=== PATIENT | male | born 1960 | race Caucasian/White ===

== ENCOUNTER → 2019-05-27 07:53 | Outpatient (BNVA) | payer MEDICAID, SELFPAY | PROVIDERS: Family Provider Family Medicine; PCP Nurse Practitioner Family; Visit Provider Anesthesiology Pain Medicine | DX: M48.02 Spinal stenosis, cervical region (principal); M54.12 Radiculopathy, cervical region; M54.16 Radiculopathy, lumbar region; F17.220 Nicotine dependence, chewing tobacco, uncomplicated; Z79.891 Long term (current) use of opiate analgesic | CPT/HCPCS: 99204; 99214; 99999 ==

== ENCOUNTER 2019-05-27 10:00 | Outpatient (CLI) | payer MEDICAID, SELFPAY ==
--- NOTE | 2019-05-27 10:05 | XR_ITS ---
WS: [id number] LATERAL LUMBAR SPINE: 3 view. Lateral radiographs are performed in upright neutral, flexion and extension to the patient's toleranc e. HISTORY: back pain COMPARISON: None available. Posterior lumbar alignment is normal. Small hypertrophic osteophytes at all levels. Mild disc space n arrowing at L4-5 and L5-S1 with facet arthropathy. Mild anterior wedging of T11 is stable. With flexion and extension no instability. XR/XR lumbar spine f/e only [id number] IMPRESSION: No lumbar spine instability.
== END 2019-05-27 10:01 | disposition home or self-care (01) ==
LOC: RADWPI 10:02
PROVIDERS: Family Provider Family Medicine; PCP Nurse Practitioner Family; Visit Provider Internal Medicine Rheumatology
DX: M54.16 Radiculopathy, lumbar region (principal)
CPT/HCPCS: 72120

== ENCOUNTER → 2019-06-10 13:47 | Outpatient (BNVA) | payer MEDICAID, SELFPAY | PROVIDERS: Family Provider Family Medicine; PCP Nurse Practitioner Family; Visit Provider Anesthesiology Pain Medicine | DX: M54.12 Radiculopathy, cervical region (principal); F17.220 Nicotine dependence, chewing tobacco, uncomplicated; Z79.891 Long term (current) use of opiate analgesic | CPT/HCPCS: 62321; J1100; J2001 ==

== ENCOUNTER → 2019-08-14 09:30 | Outpatient (BNVA) | payer MEDICAID, SELFPAY | PROVIDERS: Family Provider Family Medicine; PCP Nurse Practitioner Family; Visit Provider Anesthesiology Pain Medicine | DX: M48.02 Spinal stenosis, cervical region (principal); M54.12 Radiculopathy, cervical region; M54.16 Radiculopathy, lumbar region; M54.9 Dorsalgia, unspecified; F17.220 Nicotine dependence, chewing tobacco, uncomplicated; Z79.891 Long term (current) use of opiate analgesic | CPT/HCPCS: 99214 ==

== ENCOUNTER → 2019-09-16 08:31 | Outpatient (BNVA) | payer MEDICAID, SELFPAY | PROVIDERS: Family Provider Family Medicine; PCP Nurse Practitioner Family; Visit Provider Anesthesiology Pain Medicine | DX: M54.12 Radiculopathy, cervical region (principal); M48.02 Spinal stenosis, cervical region; M54.9 Dorsalgia, unspecified; M54.16 Radiculopathy, lumbar region; F17.220 Nicotine dependence, chewing tobacco, uncomplicated; Z79.891 Long term (current) use of opiate analgesic | CPT/HCPCS: 99214 ==

== ENCOUNTER → 2019-09-26 13:39 | Outpatient (BNVA) | payer MEDICAID, SELFPAY | PROVIDERS: Family Provider Family Medicine; PCP Nurse Practitioner Family; Visit Provider Anesthesiology Pain Medicine | DX: M54.12 Radiculopathy, cervical region (principal); F17.220 Nicotine dependence, chewing tobacco, uncomplicated; Z79.891 Long term (current) use of opiate analgesic | CPT/HCPCS: 62321; J1100; J2001 ==

== ENCOUNTER → 2019-10-08 10:07 | Outpatient (BNVA) | payer MEDICAID, SELFPAY | PROVIDERS: Family Provider Family Medicine; PCP Nurse Practitioner Family; Visit Provider Anesthesiology Pain Medicine | DX: M48.02 Spinal stenosis, cervical region (principal); M54.12 Radiculopathy, cervical region; M54.16 Radiculopathy, lumbar region; M54.9 Dorsalgia, unspecified; F17.220 Nicotine dependence, chewing tobacco, uncomplicated; Z79.891 Long term (current) use of opiate analgesic | CPT/HCPCS: 99214 ==

== ENCOUNTER → 2019-10-20 12:30 | Outpatient (BNVA) | payer MEDICAID, SELFPAY | PROVIDERS: Family Provider Family Medicine; PCP Nurse Practitioner Family; Visit Provider Anesthesiology Pain Medicine | DX: M54.12 Radiculopathy, cervical region (principal); M54.16 Radiculopathy, lumbar region; M54.9 Dorsalgia, unspecified; F17.220 Nicotine dependence, chewing tobacco, uncomplicated; Z79.891 Long term (current) use of opiate analgesic | CPT/HCPCS: 99213 ==

== ENCOUNTER → 2019-11-03 13:04 | Outpatient (BNVA) | payer MEDICAID, SELFPAY | PROVIDERS: Family Provider Family Medicine; PCP Nurse Practitioner Family; Visit Provider Anesthesiology Pain Medicine | DX: M54.12 Radiculopathy, cervical region (principal); F17.220 Nicotine dependence, chewing tobacco, uncomplicated; Z79.891 Long term (current) use of opiate analgesic | CPT/HCPCS: 62321; J1100 ==

== ENCOUNTER → 2019-12-10 09:02 | Outpatient (BNVA) | payer MEDICAID, SELFPAY | PROVIDERS: Family Provider Family Medicine; PCP Nurse Practitioner Family; Visit Provider Anesthesiology Pain Medicine | DX: M54.16 Radiculopathy, lumbar region (principal); M54.9 Dorsalgia, unspecified; M54.12 Radiculopathy, cervical region; M48.02 Spinal stenosis, cervical region; F17.220 Nicotine dependence, chewing tobacco, uncomplicated; Z79.891 Long term (current) use of opiate analgesic | CPT/HCPCS: 99213 ==

== ENCOUNTER → 2020-01-07 10:54 | Outpatient (BNVA) | payer MEDICAID, SELFPAY | PROVIDERS: Family Provider Family Medicine; PCP Nurse Practitioner Family; Visit Provider Anesthesiology Pain Medicine | DX: M54.12 Radiculopathy, cervical region (principal); M48.02 Spinal stenosis, cervical region; M54.16 Radiculopathy, lumbar region; M54.9 Dorsalgia, unspecified; F17.220 Nicotine dependence, chewing tobacco, uncomplicated; Z79.891 Long term (current) use of opiate analgesic | CPT/HCPCS: 99213; 99214 ==

== ENCOUNTER → 2020-01-12 13:30 | Outpatient (BNVA) | payer MEDICAID, SELFPAY | PROVIDERS: Family Provider Family Medicine; PCP Nurse Practitioner Family; Visit Provider Anesthesiology Pain Medicine | DX: M54.12 Radiculopathy, cervical region (principal); Z79.891 Long term (current) use of opiate analgesic | CPT/HCPCS: 62321; J1100 ==

== ENCOUNTER 2020-01-29 08:02 | Outpatient (CLI) | payer MEDICAID, SELFPAY ==
--- NOTE | 2020-01-29 08:00 | MR_ITS ---
WS: [id number] MRI LUMBAR SPINE NONCONTRAST HISTORY: M48.062 Spinal stenosis, lumbar region with neurogenic claudication. COMPARISON: None available. TECHNIQUE: Sagittal and axial multisequence imaging is submitted. Mild anterior wedging of T11. 20% compression fracture. Normal lumbar alignment posteriorly. Mild disc space narrowing and desiccation at L4-5 and L5-S1. S1 segment is partially lumbarized. There is a rudimentary S1-S2 disc. No acute marrow edema or fracture. Conus terminates normally at L1-2 disc level. L1-L2: Normal. L2-L3: Mild annular disc bulging and facet arthritis. No stenosis. L3-L4: Mild annular disc bulging and facet arthritis. No stenosis. L4-L5: Mild annular disc bulging with a shallow central to RIGHT paracentral disc protrusion and muriel lar fissure. There is very slight contact on the L5 nerve roots in the subarticular recesses. No sign ificant central or foraminal stenosis. L5-S1: Diffuse annular disc bulging. There is a central disc protrusion with annular fissure contacti ng the ventral thecal sac. Mild RIGHT foraminal stenosis due to disc and osteophyte and facet disease . MR/MR lumbar spine wo con* [id number] IMPRESSION: 1. No high-grade central or foraminal stenosis. 2. Mild bilateral subarticular recess stenosis at L4-5 with disc encroachment upon the L5 nerve roots bilaterally. 3. Central disc protrusion at L5-S1 with mild contact on the ventral thecal sa c. 4. Mild RIGHT foraminal stenosis at L5-S1. 5. T11 chronic compression fracture, 20%.
== END 2020-01-29 08:03 | disposition home or self-care (01) ==
LOC: RADSHAW 08:05
PROVIDERS: PCP Nurse Practitioner Family; Visit Provider Orthopaedic Surgery
DX: M48.062 Spinal stenosis, lumbar region with neurogenic claudication (principal); M51.27 Other intervertebral disc displacement, lumbosacral region; M48.07 Spinal stenosis, lumbosacral region; S22.080A Wedge compression fracture of T11-T12 vertebra, initial encounter for closed fracture; X58.XXXA Exposure to other specified factors, initial encounter
CPT/HCPCS: 72148

== ENCOUNTER → 2020-01-30 13:06 | Outpatient (BNVA) | payer MEDICAID, SELFPAY | PROVIDERS: PCP Nurse Practitioner Family; Visit Provider Anesthesiology Pain Medicine | DX: M48.02 Spinal stenosis, cervical region (principal); M54.16 Radiculopathy, lumbar region; M54.9 Dorsalgia, unspecified; M54.12 Radiculopathy, cervical region; F17.220 Nicotine dependence, chewing tobacco, uncomplicated; Z79.891 Long term (current) use of opiate analgesic | CPT/HCPCS: 99214; 99215 ==

== ENCOUNTER → 2020-02-16 13:15 | Outpatient (BNVA) | payer MEDICAID, SELFPAY | PROVIDERS: PCP Nurse Practitioner Family; Visit Provider Anesthesiology Pain Medicine | DX: M54.16 Radiculopathy, lumbar region (principal); M54.9 Dorsalgia, unspecified; F17.220 Nicotine dependence, chewing tobacco, uncomplicated; Z79.891 Long term (current) use of opiate analgesic | CPT/HCPCS: 64483 ==

== ENCOUNTER → 2020-03-15 09:06 | Outpatient (BNVA) | payer MEDICAID, SELFPAY | PROVIDERS: PCP Nurse Practitioner Family; Visit Provider Anesthesiology Pain Medicine | DX: M54.42 Lumbago with sciatica, left side (principal); M54.41 Lumbago with sciatica, right side; M54.16 Radiculopathy, lumbar region; M54.12 Radiculopathy, cervical region; M48.02 Spinal stenosis, cervical region; M54.9 Dorsalgia, unspecified; F17.210 Nicotine dependence, cigarettes, uncomplicated; Z79.891 Long term (current) use of opiate analgesic | CPT/HCPCS: 99213; 99214 ==

== ENCOUNTER 2020-04-20 15:08 | Outpatient (CLI) | payer MEDICAID, SELFPAY ==
--- NOTE | 2020-04-20 15:13 | MR_ITS ---
WS: [id number] MRI CERVICAL SPINE NONCONTRAST TECHNIQUE: Sagittal T1, T2 and STIR imaging. Axial T2, gradient, and fiesta imaging. CLINICAL INFORMATION: CERVICALGIA COMPARISON: MRI 7 FINDINGS: Straightening of the normal cervical lordosis. Disc bulging worse at C6-7. Cord signal is normal. C2-C3: Disc osteophyte complex with endplate ridging. Spinal canal is patent. Mild right foraminal na rrowing. Mild facet arthropathy. C3-C4: Disc osteophyte complex with endplate ridging. Mild facet arthropathy. Mild left greater than right foraminal narrowing. C4-C5: Disc osteophyte complex with a tiny shallow central protrusion. Mild central canal stenosis. M oderate left and mild right bony foraminal narrowing. Mild facet arthropathy. C5-C6: Disc osteophyte complex eccentric to the left. Mild central canal stenosis. Moderate left grea ter than right bony foraminal narrowing. Mild facet arthropathy. C6-C7: Slight retrolisthesis C6 on C7. Disc osteophyte complex with moderate central canal stenosis. Severe left greater than right bony foraminal narrowing. Mild facet arthropathy. C7-T1: Disc osteophytic ridging eccentric to the left. Moderate to severe left foraminal narrowing. S shelton canal is patent. Right foramen is patent. MR/MR cervical spin wo con* [id number] IMPRESSION: 1. Straightening of the normal cervical lordosis. 2. Slight retrolisthesis C6 on C7 with moderate central canal stenosis. Severe bilateral foraminal narrowing left greater than right. 3. Mild central canal stenosis C4-C5 and C5-C6. 4. Moderate left C4-C5 left C5-C6 and left C7-T1 bony foraminal narrowing. 5. Overall no significant changes since 2019
== END 2020-04-20 15:09 | disposition home or self-care (01) ==
LOC: RADWPI 15:11
PROVIDERS: PCP Nurse Practitioner Family; Visit Provider Nurse Practitioner Family
DX: M48.02 Spinal stenosis, cervical region (principal)
CPT/HCPCS: 72141

== ENCOUNTER → 2020-04-23 11:06 | Outpatient (BNVA) | payer MEDICAID, SELFPAY | PROVIDERS: PCP Nurse Practitioner Family; Referring Provider Nurse Practitioner Family; Visit Provider Orthopaedic Surgery | DX: M54.12 Radiculopathy, cervical region (principal); M54.2 Cervicalgia | CPT/HCPCS: 72050 ==

== ENCOUNTER → 2020-04-29 13:42 | Outpatient (BNVA) | payer MEDICAID, SELFPAY | PROVIDERS: PCP Nurse Practitioner Family; Visit Provider Anesthesiology Pain Medicine | DX: M54.16 Radiculopathy, lumbar region (principal); M54.12 Radiculopathy, cervical region; M48.02 Spinal stenosis, cervical region; M54.9 Dorsalgia, unspecified; F17.220 Nicotine dependence, chewing tobacco, uncomplicated; Z79.891 Long term (current) use of opiate analgesic | CPT/HCPCS: 99214 ==

== ENCOUNTER → 2020-06-24 08:53 | Outpatient (BNVA) | payer MEDICAID, SELFPAY | PROVIDERS: PCP Nurse Practitioner Family; Visit Provider Orthopaedic Surgery | DX: Z01.812 Encounter for preprocedural laboratory examination (principal); Z20.822 Contact with and (suspected) exposure to COVID-19 | CPT/HCPCS: 87635 ==

== ENCOUNTER 2020-06-30 05:56 | Day surgery (SDC) | payer MEDICAID, SELFPAY ==
[2020-06-29 19:12] VITALS: BMI 30.2
--- NOTE | 2020-06-30 | SCC_ITS ---
Procedure Done: 1. Anterior diskectomy C5/6 2. Anterior discectomy C6/7 3. Insertion of cage C5/6 4. Insertion of Cage C6/7 5. Instrumentation with anterior plate from C5-C7 6. Use of allograft 9.4 seconds of fluoroscopic guidance, for a cumulative dose of 1.57 mGy, was provided to Dr. Velazquez by the radiology department. C-arm images of the cervical spine were saved for the patient's permanent record. REGID
--- NOTE | 2020-06-30 | XR_ITS ---
WS: [id number] Cervical spine, AP and lateral C-arm fluoroscopy views in the OR, 06/30/2020 Clinical Data: cervical radiculopathy Comparison: Cervical spine, 04/23/2020. Findings: There is anterior cervical disc fusion of C5, C6 and C7 with artificial intervertebral disc s at C5-6-C6 and C6-C7. XR/XR cervical spine 3V* [id number] Impression: Anterior cervical disc fusion C5-C7.
--- NOTE | 2020-06-30 06:46 | ANES.PREANE2 ---
Pre-Anesthetic Assessment Pre-Anesthetic Assessment: Height/Weight: Height 1.7 m Weight 87.543 kg Preop Diagnosis: cervical spondylosis with myelopathy Proposed Procedure: Operation Date: 06/30/20 07:00 Proposed Procedures p Anterior Cervical Discectomy & Fusion /c 5/6 C6/7 M54.12 [id number](Not Applicable) - Ed Velazquez DO Familial anesthetic complications: none Was Beta Esau taken within 24 hours: N/A Was Clonidine taken within 24 hours: N/A Last intake: Intake Last Liquid Date 06/29/20 Last Liquid Time 18:00 Last Solid Date 06/29/20 Last Solid Time 18:00 Social: Social History: Alcohol and No tobacco Exam: Pre-Anes Outpt Exam: alert, oriented x 3, clear to auscultation bilaterally and regular rate & rhythm Airway: Cervical ROM: WNL MP: 4 Dentition: False (uppers) CV/HEM: CV/HEM: HTN Hepatic: Comments: cirrhosis GI: GI: GERD Metabolic: Metabolic: Hyperlipidemia and Morbid obesity Anesthetic Plan: ASA status: 3 Anesthesia: General Risk of > 500 ml blood loss (7ml/kg in children): No PFSH Anesthesia PFSH: Medical History Cervical disc disorder with myelopathy of mid-cervical region Spinal stenosis, cervical region Family History Son Asthma Family/Other Asthma Son Seizure disorder Family/Other Diabetes Family/Other Cancer malignant neoplastic disease Grandfather Heart disease Brother Cancer throat Brother Cardiac arrest Social History Smoking and tobacco status: current every day smoker smokeless tobacco Smokeless tobacco user: chewing tobacco Alcohol intake: current Alcohol intake frequency: few times a week Last alcohol use date: 05/26/19 Other details last alcohol use: pt uses to help him sleep Lives independently: Yes Marital status: Single History of recent travel: No Data Anesthesia Cardiac Studies: No Data to Display
--- NOTE | 2020-06-30 06:50 | PM.HP ---
Providers/Chief Complaint Primary Care Provider: Linnetet BernalP-C Chief Complaint: cervical radiculopahty History of Present Illness Xander Lord is a 59 year old male patient who presents to the clinic for evaluation of his chronic neck pain. Chief Complaint: Neck pain Onset: 20 years Duration: Characteristics: sharp Severity: 3 Location: neck Radiating symptoms: pain and numbness that radiates to both upper extremities. Aggravating factors: Alleviating factors: Neuro deficits: denies numbness, tingling, weakness, incontinence of bowel/bladder, saddle anesthesia. Prior tx: Injections at pain management with Dr. Lindsey and Carolyn Associated symptoms: Reports limited range of motion; Denies fever(s) Review of Systems Narrative: Denies: fever(s) or chills Card: Denies: chest pain or dyspnea on exertion Resp: Denies: dyspnea or productive cough GI: Denies: abdominal pain, nausea or vomiting Musc: Reports: neck pain and limited range of motion Skin/Breast: Denies: changes in skin color or dry skin Neuro: Reports: numbness in extremities; Denies: weakness in extremities Psych: Denies: anxiety Angel/Lymph: Denies: easy bruising or easy bleeding Medications/Allergies Home Medications Medication Instructions Recorded Confirmed Last Taken Type atorvastatin 40 mg tablet 40 mg PO DAILY 05/27/19 06/30/20 06/29/20 History azelastine 137 mcg (0.1 %) nasal 2 spray INTRANASAL BID 05/27/19 06/30/20 06/29/20 History spray aerosol buspirone 10 mg tablet 10 mg PO BID 05/27/19 06/30/20 06/29/20 History carvedilol 6.25 mg tablet 6.25 mg PO BID 05/27/19 06/30/20 06/30/20 04:30 History cetirizine 10 mg tablet 10 mg PO DAILY 05/27/19 06/30/20 06/29/20 History duloxetine 30 mg capsule,delayed 30 mg PO DAILY 05/27/19 06/30/20 06/29/20 History release gabapentin 600 mg tablet 600 mg PO TID 05/27/19 06/30/20 06/29/20 History ipratropium bromide 21 mcg (0.03 2 spray INTRANASAL BID 05/27/19 06/30/20 06/29/20 History %) nasal spray lisinopril 20 mg tablet 20 mg PO DAILY 05/27/19 06/30/20 06/29/20 History methocarbamol 750 mg tablet 750 mg PO TID 05/27/19 06/30/20 06/29/20 History omeprazole 20 mg capsule,delayed 20 mg PO BID 05/27/19 06/30/20 06/29/20 History release ergocalciferol (vitamin D2) 1,250 1,250 mcg PO .twice per month cap 08/14/19 06/30/20 06/22/20 History mcg (50,000 unit) capsule celecoxib 200 mg capsule 200 mg PO DAILY #30 cap MDD 1 04/29/20 06/30/20 06/29/20 Rx Allergies Allergy/AdvReac Type Severity Reaction Status Date / Time No Known Allergies Allergy Verified 06/30/20 06:10 PFSH Acute PFSH: Medical History Cervical disc disorder with myelopathy of mid-cervical region Spinal stenosis, cervical region Family History Son Asthma Family/Other Asthma Son Seizure disorder Family/Other Diabetes Family/Other Cancer malignant neoplastic disease Grandfather Heart disease Brother Cancer throat Brother Cardiac arrest Social History Smoking and tobacco status: current every day smoker smokeless tobacco Smokeless tobacco user: chewing tobacco Alcohol intake: current Alcohol intake frequency: few times a week Last alcohol use date: 05/26/19 Other details last alcohol use: pt uses to help him sleep Lives independently: Yes Marital status: Single History of recent travel: No Vitals/I&O/Wt Weight last 48 hrs Weight 193 lb Physical Exam Narrative: EXAM NARRATIVE: EXAM NARRATIVE: CONSTITUTIONAL: The patient is normal appearing, well groomed, cooperative and in no apparent distress. GENERAL: Patient in no acute distress. Well nourished. CARDIAC: Regular rate and rhythm. CHEST: Normal inspiratory effort, normal respiratory rate. ABDOMEN: Soft and non-tender. SKIN: Clear, warm and intact. NEURO?PSYCH: The patient is alert and oriented to person, place and time. NEUROVASCULAR: Upper Extremity Sensory - SILT. Motor Strength: Shoulder abduction C5: 5/5; Wrist extension C6: 5/5; Elbow extension C7: 5/5; Hand Foreclosure Clerk C8: 5/5; Finger abduction T1: 5/5. Radial/ Ulnar/ Median in intact Lower Extremity Sensory - SILT. Motor Strength: Hip flexion L2/3; Ant/inner thigh: 5/5; Hip adduction L2/3: 5/5; Knee extension L4 Lat thigh: 5/5; Toe dorsiflexion L5: 5/5; Ankle dorsiflexion L5/ S1: 5/5; Plantar flexion S1: 5/5. DTR: Triceps 2+; Brachioradialis 2+; Patellar 2+; Achilles 2+. MUSCULOSKELETAL: UPPER EXTREMITIES: The patient had full active ROM in fingers, wrist, elbow, and shoulder. The patient demonstrated ability to fully flex/extend/abduct/adduct fingers, make ok sign, cross 2nd/3rd digits, extend 1st digit fully.. Radial pulse 2+, CR<2 seconds. LOWER EXTREMITIES: Pt has full, active ROM of toes, ankle, knee, and hip. Dorsalis pedis & posterior tibialis pulses 2+, CR<2 seconds. SPINE: Skin warm, dry, intact. A&P Assessment and plan (1) Cervical radiculopathy: C5/6, C6/7 ACDF Status: Acute Attestations Medical Necessity Statement*: progressive pain, failed conservative tx Coding Level of Care Code Acute Rn New Graduate for Isaak Cervantes Diagnoses Cervical radiculopathy M54.12
[2020-06-30 06:54] VITALS: BP 166/102; PULSE 75; RESP 18; TEMP 36.8; O2SAT 94
[2020-06-30] MEDS: sodium chloride 0.9% 1,000 ML 30 ML IV (06:54)
--- NOTE | 2020-06-30 06:55 | W.PM.OPSUD ---
Surgery/Procedure H&P Update DATE OF PROCEDURE: June 30, 2020 DATE H&P PERFORMED: 04/23/20 PREOP DIAGNOSIS: cervical spondylosis with myelopathy PLANNED PROCEDURE: Operation Date: 06/30/20 07:00 Proposed Procedures p Anterior Cervical Discectomy & Fusion /c 5/6 C6/7 M54.12 [id number](Not Applicable) - Ed Velazquez DO
--- NOTE | 2020-06-30 06:56 | W.PM.OPSUD ---
Surgery/Procedure H&P Update DATE OF PROCEDURE: June 30, 2020 DATE H&P PERFORMED: 04/23/20 H&P UPDATE INFORMATION: I have reviewed H&P completed within last 30 days, I have examined patient prior to procedure and No changes to prior documentation PREOP DIAGNOSIS: cervical spondylosis with myelopathy PLANNED PROCEDURE: Operation Date: 06/30/20 07:00 Proposed Procedures p Anterior Cervical Discectomy & Fusion /c 5/6 C6/7 M54.12 [id number](Not Applicable) - Ed Velazquez DO
--- NOTE | 2020-06-30 09:46 | PM.OP ---
Operative Report Date of procedure: June 30, 2020 Pre-op Diagnosis: cervical spondylosis with myelopathy Post-op diagnosis: same Procedure Done: 1. Anterior diskectomy C5/6 2. Anterior discectomy C6/7 3. Insertion of cage C5/6 4. Insertion of Cage C6/7 5. Instrumentation with anterior plate from C5-C7 6. Use of allograft Anesthesia: General Estimated blood loss (mL): 25 Condition: stable Disposition: PACU Procedure: 1. Anterior diskectomy C5/6 2. Anterior discectomy C6/7 3. Insertion of cage C5/6 4. Insertion of Cage C6/7 5. Instrumentation with anterior plate from C5-C7 6. Use of allograft The patient was taken to the operating room, where he underwent general endotracheal anesthesia without complications. He was then positioned supine on the operating table, and all areas of impingement were well padded. The arms were carefully padded and tucked at his sides. A roll was placed between the shoulder blades.. An x-ray was done to determine the appropriate level for the skin incision. The entire neck was then sterilely prepped and draped in the usual fashion. Neuromonitoring was attached prior to prepping. A transverse skin incision was made and carried down to the platysma muscle. This was then split in line with its fibers. Blunt dissection was carried down medial to the carotid sheath and lateral to the trachea and esophagus until the anterior cervical spine was visualized. A needle was placed into a disc and an x-ray was done to determine its location. The longus colli muscles were then elevated bilaterally with the electrocautery unit. Self-retaining retractors were placed deep to the longus colli muscle. Attention was brought to the C5/6 level that was confirmed on x-ray. A caspar pin was placed into the C5 vertebrae and the C6 vertebrae. The disk space was then distracted. The microscope was then brought in. A radical anterior discectomies were performed at C5/6. This included complete removal of the anterior annulus, nucleus, and posterior annulus. The posterior longitudinal ligament was removed as were the posterior osteophytes. Foraminotomies were then accomplished bilaterally. This was done using a high speed otoniel, kerrison rongeurs and curretes Once all of this was accomplished, the curved currette was used to check for any residual compression. The central canal was wide open as were the foramen. A high-speed bur was used to remove the cartilaginous endplates above and below the interspace. Bleeding cancellous bone was exposed. The disc space were measured and appropriate size cage were placed sterilely onto the field. Allograft graft was packed into the cages. The cage was then placed and there was good juxtaposition against the bleeding decorticated surfaces and good distraction of each interspace. Attention was brought to the next interspace. ttention was brought to the C6/7 level that was confirmed on x-ray. A caspar pin was placed into the C6 vertebrae and the C7 vertebrae. The disk space was then distracted. The microscope was then brought in. A radical anterior discectomies were performed at C6/7. This included complete removal of the anterior annulus, nucleus, and posterior annulus. The posterior longitudinal ligament was removed as were the posterior osteophytes. Foraminotomies were then accomplished bilaterally. This was done using a high speed otoniel, kerrison rongeurs and curretes Once all of this was accomplished, the curved currette was used to check for any residual compression. The central canal was wide open as were the foramen. A high-speed bur was used to remove the cartilaginous endplates above and below the interspace. Bleeding cancellous bone was exposed. The disc space were measured and appropriate size cage were placed sterilely onto the field. Allograft graft was packed into the cages. The cage was then placed and there was good juxtaposition against the bleeding decorticated surfaces and good distraction of each interspace. Attention was brought to the next interspace. The [place] pins were removed. Bone wax was used to prevent any bleeding from occurring at the pin sites. The appropriate size anterior cervical locking plate was chosen and bent into gentle lordosis. Two screws were then placed into each of the vertebral bodies at C5,C6 and C7. There was excellent purchase. A final x-ray was done confirming good position of the hardware and Cages. The locking screws were then applied, also with excellent purchase. Following a final copious irrigation, there was good hemostasis and no dural leaks. The carotid pulse was strong. The wounds were then closed in layers using 2-0 Vicryl suture for the platysma muscle, 2-0 Vicryl suture for the subcutaneous tissue, and 4-0 monocryl suture in a subcuticular skin closure. Glue was placed followed by application of a sterile dressing. The drain was hooked to bulb suction. A soft collar was applied. The patient was then carefully returned to the supine position on his hospital bed where he was reversed and extubated and taken to the recovery room having tolerated the procedure well.
[2020-06-30 09:48] VITALS: BP 125/84; PULSE 92; RESP 10; TEMP 36.5; O2SAT 92
[2020-06-30 09:55] VITALS: BP 145/96; PULSE 92; RESP 15; O2SAT 93
[2020-06-30 10:00] VITALS: BP 145/96; PULSE 90; RESP 17; TEMP 36.6; O2SAT 94
[2020-06-30 10:07] VITALS: BP 145/84; PULSE 92; RESP 16; TEMP 36.6; O2SAT 94
[2020-06-30] MEDS: HYDROcodone-acetaminophen 5-325 mg Tablet 1 TAB PO (10:17)
[2020-06-30 10:22] VITALS: BP 155/88; PULSE 90; RESP 16; TEMP 36.7; O2SAT 95
--- NOTE | 2020-06-30 18:02 | ANE.PACU2 ---
Inpatient post-anesthesia follow up: Airway intact: Yes Vital signs: Temperature 98.1 F Pulse Rate 90 Respiratory Rate 16 Blood Pressure 155/88 Pulse Oximetry 95 Oxygen Delivery Me thod Room Air Oxygen Flow Rate 8 Fraction of Inspir ed Oxygen Hydration adequate: Yes Nausea and vomiting: No Pain level: 2 Mental status: Baseline
== END 2020-06-30 10:45 | disposition home or self-care (01) ==
PROVIDERS: PCP Nurse Practitioner Family; Visit Provider Orthopaedic Surgery
PROC: 0RB30ZZ Excision of Cervical Vertebral Disc, Open Approach (ICD-10-PCS; CPT 22551; principal; 2020-06-30 07:00)
DX: M47.12 Other spondylosis with myelopathy, cervical region (principal); F17.220 Nicotine dependence, chewing tobacco, uncomplicated; I10 Essential (primary) hypertension; K21.9 Gastro-esophageal reflux disease without esophagitis; E78.5 Hyperlipidemia, unspecified; E66.01 Morbid (severe) obesity due to excess calories; Z68.30 Body mass index [BMI] 30.0-30.9, adult
CPT/HCPCS: 20930; 22551; 22845; 22853 ×2; 72040; 76000; 97760; C1713; C9359; J0330; J0690; J1100; J2405; J2704; J3010; J3490; J7030; L0174

== ENCOUNTER → 2020-08-12 08:46 | Outpatient (BNVA) | payer MEDICAID, SELFPAY | PROVIDERS: PCP Nurse Practitioner Family; Visit Provider Orthopaedic Surgery | DX: Z48.89 Encounter for other specified surgical aftercare (principal); Z98.1 Arthrodesis status | CPT/HCPCS: 72040 ==

== ENCOUNTER 2020-08-24 20:00 | Outpatient (CLI) | payer MEDICAID, SELFPAY | END 2020-08-24 20:01 | disposition home or self-care (01) | LOC: SLEEP 08-25 10:28 | PROVIDERS: PCP Nurse Practitioner Family; Visit Provider Nurse Practitioner Family | DX: G47.33 Obstructive sleep apnea (adult) (pediatric) (principal) | CPT/HCPCS: 95811 ==

== ENCOUNTER 2020-10-01 10:37 | Outpatient (CLI) | payer MEDICAID, SELFPAY ==
[2020-10-01 10:53] VITALS: BMI 27.2
--- NOTE | 2020-10-01 10:53 | ECG_ITS ---
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 Interpretive Statements NAME OF STUDY: LEXISCAN SESTAMIBI STRESS TEST INDICATION: Chest Pain PROCEDURE: At the baseline, the blood pressure was 135/87 with a heart rate of 74. The electrocardiogram showed normal sinus rhythm with a poor R wave progression.. ??? The Lexiscan was infused over a period of 20 seconds. A total of 0.4 milligrams of Lexiscan was infused. The stress phase was continued for a total of 5 minutes. Heart rate at the end of the stress phase was 81 with a blood pressure 131/90. The EKG at the peak infusion revealed no significant changes. ??? Sestamibi was injected 20 seconds after the Lexiscan infusion. ??? Blood pressure at the end of the recovery phase was 126/87 with a heart rate of 81 per minute. ??? CONCLUSION: 1. No significant EKG changes with the LexiScan infusion 2. No LexiScan induced chest pain or cardiac arrhythmia. 3. Normal blood pressure and heart rate response. 4. Sestamibi/sestamibi perfusion scan pending; see separate report. Electronically Signed On 10-21-2020 6:53:29 CDT by Singh Iverson M.D. [id number]
--- NOTE | 2020-10-01 10:53 | NMCV_ITS ---
NM bob perf SPECT r/s* [id number] Xander Lord Age: 59 Gender: M : 1960 Exam Date: 10/01/2020 10:53 Ordering Phys: Linnette Bernal Technologist: ALMITA Bradley Exam Location: [facility] Indications: CHEST PAIN STRESS TEST Please see separate stress test report in [facility] for full findings IMAGE PROTOCOL Rest/Stress 1 Lexiscan Day Radiopharmaceutical Dose (mCi) Administration Site Administered by Rest: Tc-99m 10.8 IV ALMITA Fields Sestamibi Stress:Tc-99m 33.0 IV ALMITA Fields Sestamibi Rest: 01-Oct-2020 60 Discovery 630 Stress: 01-Oct-2020 30 Discovery 630 0.4mg Lexiscan. Images obtained in supine and prone position. SPECT RESULTS Technical Quality: Excellent Raw Data Analysis: Normal Image Corrections: No attenuation or motion correction applied Summed Stress Score: 1 Summed Rest Score: 1 Summed Difference Score: 0 PERFUSION FINDINGS Small area of slightly decreased tracer uptake was noted in the inferolateral region, with no significant reversibility. FUNCTIONAL RESULTS (calculated via Gated SPECT) Stress Image LV EF (%): 62 Stress EDV (mL):87 TID: 0.95 Stress ESV (mL):33 FUNCTIONAL FINDINGS: Segmental wall motion analysis revealing no gross wall motion normalities IMPRESSIONS 1. Myocardial perfusion imaging revealing a small area of persistent decreased tracer uptake in the inferolateral region, suggestive of myocardial scarring versus attenuation artifact . 2. Normal LV ejection fraction of 62%. 3. LV wall motion analysis revealing no gross wall motion normalities. 4. Normal LV volume. No significant coronary ischemia, based on the above findings Dr Singh Iverson MD [facility] (Electronically Signed) Final Date: 01 October 2020 16:13 S
[2020-10-01] MEDS: regadenoson 0.4 Mg/5 ml Syringe IVP (12:06)
[2020-10-01 12:22] VITALS: BP 126/87; PULSE 84
== END 2020-10-01 10:38 | disposition home or self-care (01) ==
PROVIDERS: PCP Nurse Practitioner Family; Visit Provider Nurse Practitioner Family
DX: R07.9 Chest pain, unspecified (principal)
CPT/HCPCS: 78452; 93017; A9500; J2785

== ENCOUNTER → 2020-10-15 08:21 | Outpatient (BNVA) | payer MEDICAID, SELFPAY | PROVIDERS: PCP Nurse Practitioner Family; Visit Provider Nurse Practitioner | DX: G31.84 Mild cognitive impairment of uncertain or unknown etiology (principal); R25.1 Tremor, unspecified | CPT/HCPCS: 96116; 99204 ==

== ENCOUNTER → 2020-10-26 14:49 | Outpatient (BNVA) | payer MEDICAID, SELFPAY | PROVIDERS: PCP Nurse Practitioner Family; Visit Provider Orthopaedic Surgery | DX: M54.16 Radiculopathy, lumbar region (principal); M54.5 Low back pain; M47.892 Other spondylosis, cervical region | CPT/HCPCS: 72040; 72110 ==

== ENCOUNTER → 2020-11-02 15:32 | Outpatient (BNVA) | payer MEDICAID, SELFPAY | PROVIDERS: PCP Nurse Practitioner Family; Visit Provider Internal Medicine | DX: R13.10 Dysphagia, unspecified (principal); Z01.812 Encounter for preprocedural laboratory examination | CPT/HCPCS: 87635 ==

== ENCOUNTER → 2020-11-05 | Day surgery (SDC) | payer MEDICAID, SELFPAY ==
[2020-11-04 11:39] VITALS: BMI 31.4
--- NOTE | 2020-11-05 09:02 | P.HP_ITS ---
Same Day Surgery H&P Indication for Procedure/HPI DATE OF PROCEDURE: November 05, 2020 CHIEF COMPLAINT/INDICATIONFOR SURGICAL PROCEDURE: Dysphagia PREOP DIAGNOSIS: cervical spondylosis with myelopathy PLANNED PROCEDRUE: Operation Date: 11/05/20 10:15 Proposed Procedures p EGD [id number] r13.10(Not Applicable) - Lamonte Farr MD Medications/Allergies* Home Medications Medication Instructions Recorded Confirmed Type atorvastatin 40 mg tablet 40 mg PO DAILY 05/27/19 11/05/20 History azelastine 137 mcg (0.1 %) nasal 2 spray INTRANASAL BID 05/27/19 11/05/20 History spray aerosol buspirone 10 mg tablet 10 mg PO BID 05/27/19 11/05/20 History carvedilol 6.25 mg tablet 6.25 mg PO BID 05/27/19 11/05/20 History cetirizine 10 mg tablet 10 mg PO DAILY 05/27/19 11/05/20 History duloxetine 30 mg capsule,delayed 30 mg PO DAILY 05/27/19 11/05/20 History release gabapentin 600 mg tablet 600 mg PO TID 05/27/19 11/05/20 History ipratropium bromide 21 mcg (0.03 2 spray INTRANASAL BID 05/27/19 11/05/20 History %) nasal spray lisinopril 20 mg tablet 20 mg PO DAILY 05/27/19 11/05/20 History methocarbamol 750 mg tablet 750 mg PO TID 05/27/19 11/05/20 History omeprazole 20 mg capsule,delayed 20 mg PO BID 05/27/19 11/05/20 History release ergocalciferol (vitamin D2) 1,250 1,250 mcg PO .twice per month cap 08/14/19 11/05/20 History mcg (50,000 unit) capsule Allergies/Adverse Reactions Allergy/AdvReac Type Severity Reaction Status Date / Time No Known Allergies Allergy Verified 10/26/20 14:39 Pertinent History/Comorbid Conditions* Medical History (Updated 11/02/20 @ 15:04 by Lamnote Farr MD) Cervical disc disorder with myelopathy of mid-cervical region Cognitive impairment Spinal stenosis, cervical region Family History (Updated 05/27/19 @ 08:27 by Arina Howell LPN) Brother Diabetes Family/Other Cardiac arrest Brother Heart disease Grandfather Seizure disorder Son Cancer Family/Other malignant neoplastic disease Brother throat Asthma Son Family/Other Social History Smoking and tobacco status: never smoked Alcohol intake: current Alcohol intake frequency: few times a week Last alcohol use date: 05/26/19 Other details last alcohol use: pt uses to help him sleep Lives independently: Yes Marital status: Single History of recent travel: No Pertinent Exam Findings alert, oriented x 3, clear to auscultation bilaterally, regular rate & rhythm, operative site marked and procedure specific exam findings Recommendations Surgery/Procedure today Coding Level of Care Code Acute Recordak Operator for Isaak Cervantes
== END ==
PROVIDERS: PCP Nurse Practitioner Family; Visit Provider Internal Medicine
DX: Z01.818 Encounter for other preprocedural examination (principal)
CPT/HCPCS: J2704

== ENCOUNTER 2020-11-24 09:22 | Outpatient (CLI) | payer MEDICAID, SELFPAY ==
--- NOTE | 2020-11-24 09:27 | MR_ITS ---
WS: [id number] MRI CERVICAL SPINE NONCONTRAST TECHNIQUE: Sagittal T1, T2 and STIR imaging. Axial T2, gradient, and fiesta imaging. CLINICAL INFORMATION: M54.12 - Radiculopathy, cervical region COMPARISON: MRI April 20, 2020 FINDINGS: Straightening of the normal cervical lordosis. Postoperative changes are new compared to previous. Pr ior postoperative changes anterior interbody cervical fusion C5-C7. Cord signal is normal. Images deg raded due to susceptibility artifact from hardware. C2-C3: Disc osteophyte complex with endplate ridging. Spinal canal and foramen are patent. C3-C4: Disc osteophyte complex with endplate ridging. Mild right greater than left bony foraminal mikey rowing. C4-C5: Disc osteophyte complex with endplate ridging. Mild left greater than right bony foraminal mikey rowing. Mild facet arthropathy. C5-C6: Postoperative changes ACDF. Moderate left greater than right bony foraminal narrowing. Spinal canal is patent. Moderate facet arthropathy left greater than right. C6-C7: Postoperative changes ACDF with interbody fusion. Moderate left greater than right right nadya inal narrowing. Mild facet arthropathy. Mild central canal stenosis. C7-T1: No significant disc bulging. Osteophytic ridging. Moderate left and mild right bony foraminal narrowing. Visualized brain stem structures: Normal. Prevertebral soft tissues: Normal. MR/MR cervical spin wo con* [id number] IMPRESSION: Exam is somewhat limited due to motion artifact and susceptibility artifact from hardware. 1. Straightening of the normal cervical lordosis. 2. Interval postoperative changes ACDF C5-C7 from previous. 3. No high-grade central canal stenosis. 4. Small central protrusion C4-5 unchanged from previous. 5. Mild central canal stenosis C6-7. 6. Multilevel mild to moderate bony foraminal narrowing worse at left C4-5, le ft C5-6, bilateral C6-7 and left C7-T1.
== END 2020-11-24 09:23 | disposition home or self-care (01) ==
LOC: RADSHAW 09:25
PROVIDERS: PCP Nurse Practitioner Family; Visit Provider Orthopaedic Surgery
DX: M54.12 Radiculopathy, cervical region (principal); M50.221 Other cervical disc displacement at C4-C5 level; M48.02 Spinal stenosis, cervical region
CPT/HCPCS: 72141

== ENCOUNTER → 2021-01-18 15:48 | Outpatient (BNVA) | payer MEDICAID, SELFPAY | PROVIDERS: PCP Nurse Practitioner Family; Visit Provider Orthopaedic Surgery | DX: M54.2 Cervicalgia (principal); G89.29 Other chronic pain | CPT/HCPCS: 72040 ==

== ENCOUNTER → 2021-03-07 13:29 | Outpatient (BNVA) | payer MEDICAID, SELFPAY | PROVIDERS: PCP Nurse Practitioner Family; Visit Provider Internal Medicine | DX: Z20.822 Contact with and (suspected) exposure to COVID-19 (principal); R13.10 Dysphagia, unspecified; Z20.828 Contact with and (suspected) exposure to other viral communicable diseases | CPT/HCPCS: 87635 ==

== ENCOUNTER 2021-03-14 06:14 | Day surgery (SDC) | payer MEDICAID, SELFPAY ==
[2021-03-11 10:48] VITALS: BMI 29.7
[2021-03-14 07:00] VITALS: BP 140/83; PULSE 73; RESP 18; TEMP 36.1; O2SAT 96
--- NOTE | 2021-03-14 07:05 | ANES.PREANE2 ---
Pre-Anesthetic Assessment Pre-Anesthetic Assessment: Height/Weight: Height 1.7 m Weight 86.183 kg Temp Pulse Resp BP Pulse Ox 97 F L 73 18 140/83 96 03/14/21 07:00 03/14/21 07:00 03/14/21 07:00 03/14/21 07:00 03/14/21 07:00 Preop Diagnosis: odynophagia Proposed Procedure: Operation Date: 03/14/21 07:30 Proposed Procedures p EGD 30745 R13.10(Not Applicable) - Lamonte Farr MD Familial anesthetic complications: none Was Beta Esau taken within 24 hours: Yes Was Clonidine taken within 24 hours: N/A Last intake: Intake Last Liquid Date 03/12/21 Last Liquid Time 22:00 Last Solid Date 03/13/21 Last Solid Time 21:00 Last Intake: 22:00 Social: Social History: Alcohol (6pk day) and Tobacco (chew) Exam: Pre-Anes Outpt Exam: alert, oriented x 3, clear to auscultation bilaterally and regular rate & rhythm Airway: Submandibular: WNL Cervical ROM: WNL MP: 2 Dentition: False Pulmonary: Pulmonary: COPD and Sleep apnea (CPAP) CV/HEM: CV/HEM: Angina (Stable) (Neg stress test 10-[address] Iverson) and HTN : : None reported Hepatic: Hepatic: Cirrohsis GI: GI: GERD Metabolic: Metabolic: None reported Musc/skel: Musc/skel: Lower Back Pain and OA/DJD Neuropsych: Neuropsych: Anxiety and Depression Anesthetic Plan: ASA status: 3 Anesthesia: MAC Risk of > 500 ml blood loss (7ml/kg in children): No PFSH Anesthesia PFSH: Medical History Cervical disc disorder with myelopathy of mid-cervical region Cognitive impairment Spinal stenosis, cervical region Family History Son Asthma Family/Other Asthma Son Seizure disorder Family/Other Diabetes Family/Other Cancer malignant neoplastic disease Grandfather Heart disease Brother Cancer throat Brother Cardiac arrest Social History Smoking and tobacco status: never smoked Alcohol intake: current Alcohol intake frequency: few times a week Last alcohol use date: 05/26/19 Other details last alcohol use: pt uses to help him sleep Lives independently: Yes Marital status: Single History of recent travel: No Data Anesthesia Cardiac Studies: No Data to Display
[2021-03-14] MEDS: sodium chloride 0.9% 1,000 ML 30 ML IV (07:06)
--- NOTE | 2021-03-14 07:35 | W.PM.OPSFHP ---
Same Day Surgery H&P Indication for Procedure/HPI DATE OF PROCEDURE: March 14, 2021 CHIEF COMPLAINT/INDICATIONFOR SURGICAL PROCEDURE: Dysphagia PREOP DIAGNOSIS: odynophagia PLANNED PROCEDRUE: Operation Date: 03/14/21 07:30 Proposed Procedures p EGD 09885 R13.10(Not Applicable) - Lamonte Farr MD Medications/Allergies* Home Medications Medication Instructions Recorded Confirmed Type atorvastatin 40 mg tablet 40 mg PO DAILY 05/27/19 03/11/21 History azelastine 137 mcg (0.1 %) nasal 2 spray INTRANASAL BID 05/27/19 03/11/21 History spray aerosol buspirone 10 mg tablet 10 mg PO BID 05/27/19 03/11/21 History carvedilol 6.25 mg tablet 6.25 mg PO BID 05/27/19 03/11/21 History cetirizine 10 mg tablet 10 mg PO DAILY 05/27/19 03/11/21 History duloxetine 30 mg capsule,delayed 30 mg PO DAILY 05/27/19 03/11/21 History release gabapentin 600 mg tablet 600 mg PO TID 05/27/19 03/11/21 History ipratropium bromide 21 mcg (0.03 2 spray INTRANASAL BID 05/27/19 03/11/21 History %) nasal spray lisinopril 20 mg tablet 20 mg PO DAILY 05/27/19 03/11/21 History methocarbamol 750 mg tablet 750 mg PO TID 05/27/19 03/11/21 History omeprazole 20 mg capsule,delayed 20 mg PO BID 05/27/19 03/11/21 History release ergocalciferol (vitamin D2) 1,250 1,250 mcg PO .twice per month cap 08/14/19 03/11/21 History mcg (50,000 unit) capsule celecoxib [Celebrex] 200 mg PO EVERY OTHER DAY MDD 1 03/11/21 03/11/21 History Allergies/Adverse Reactions Allergy/AdvReac Type Severity Reaction Status Date / Time No Known Allergies Allergy Verified 03/11/21 10:45 Current Medications: Generic Name Dose Route Start Last Admin Trade Name Freq PRN Reason Stop Dose Admin Sodium Chloride 1,000 mls @ 30 mls/hr 03/14/21 06:30 03/14/21 07:06 Sodium Chloride 0.9% IV 30 mls/hr .Q24H RON Administration Pertinent History/Comorbid Conditions* Medical History (Updated 11/02/20 @ 15:04 by Lamonte Farr MD) Cervical disc disorder with myelopathy of mid-cervical region Cognitive impairment Spinal stenosis, cervical region Family History (Updated 05/27/19 @ 08:27 by Arina Howell LPN) Brother Diabetes Family/Other Cardiac arrest Brother Heart disease Grandfather Seizure disorder Son Cancer Family/Other malignant neoplastic disease Brother throat Asthma Son Family/Other Social History Smoking and tobacco status: never smoked Alcohol intake: current Alcohol intake frequency: few times a week Last alcohol use date: 05/26/19 Other details last alcohol use: pt uses to help him sleep Lives independently: Yes Marital status: Single History of recent travel: No Pertinent Exam Findings alert, oriented x 3, clear to auscultation bilaterally, regular rate & rhythm, operative site marked and procedure specific exam findings Recommendations Surgery/Procedure today Coding Level of Care Code Acute 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
[2021-03-14 07:49] VITALS: BP 95/55; PULSE 74; RESP 16; TEMP 36.1; O2SAT 96
[2021-03-14 08:10] VITALS: BP 114/74; PULSE 74; RESP 18; O2SAT 94
--- NOTE | 2021-03-14 14:52 | ANE.PACU2 ---
Inpatient post-anesthesia follow up: Airway intact: Yes Vital signs: Temperature 97 F Pulse Rate 74 Respiratory Rate 18 Blood Pressure 114/74 Pulse Oximetry 94 Oxygen Delivery Me thod Room Air Oxygen Flow Rate 3 Fraction of Inspir ed Oxygen Hydration adequate: Yes Nausea and vomiting: No Pain level: 1 Mental status: Baseline
[2021-03-15 12:39] LABS: H. Pylori / CLO Test Negative
== END 2021-03-14 08:29 | disposition home or self-care (01) ==
PROVIDERS: PCP Nurse Practitioner Family; Visit Provider Internal Medicine
PROC: 0DJ08ZZ Inspection of Upper Intestinal Tract, Via Natural or Artificial Opening Endoscopic (ICD-10-PCS; CPT 43235; principal; 2021-03-14 07:30)
DX: R13.10 Dysphagia, unspecified (principal); J44.9 Chronic obstructive pulmonary disease, unspecified; G47.30 Sleep apnea, unspecified; I10 Essential (primary) hypertension; K29.70 Gastritis, unspecified, without bleeding
CPT/HCPCS: 43239; 87077; 96360; J2704; J7030

== ENCOUNTER → 2021-04-20 10:38 | Outpatient (BNVA) | payer MEDICAID, SELFPAY | PROVIDERS: PCP Nurse Practitioner Family; Visit Provider Nurse Practitioner Family | DX: Z20.828 Contact with and (suspected) exposure to other viral communicable diseases (principal) | CPT/HCPCS: 87635 ==

== ENCOUNTER → 2021-09-26 13:44 | Outpatient (BNVA) | payer MEDICAID, SELFPAY | PROVIDERS: PCP Nurse Practitioner Family; Visit Provider Nurse Practitioner | DX: M54.16 Radiculopathy, lumbar region (principal); R26.89 Other abnormalities of gait and mobility; R41.3 Other amnesia | CPT/HCPCS: 99213; 99214 ==

== ENCOUNTER → 2021-10-25 10:22 | Outpatient (BNVA) | payer MEDICAID, SELFPAY | PROVIDERS: PCP Nurse Practitioner Family; Visit Provider Anesthesiology Pain Medicine | DX: M54.50 Low back pain, unspecified (principal); M79.18 Myalgia, other site | CPT/HCPCS: 20553; 99205; J1030 ==

== ENCOUNTER 2021-11-07 15:36 | Outpatient (CLI) | payer MEDICAID, SELFPAY ==
--- NOTE | 2021-11-07 16:00 | MR_ITS ---
WS: [id number] MRI LUMBAR SPINE NONCONTRAST TECHNIQUE: Sagittal T1, T2 and STIR imaging. Axial T1 and T2 imaging. CLINICAL INFORMATION: M54.16 - Radiculopathy, lumbar region COMPARISON: MRI 2020 FINDINGS: Mild lumbar curve. No acute compression. No high-grade central canal stenosis. Mild chronic anterior wedging at T11 unchanged from 2020. L1-L2: Normal. L2-L3: Mild facet arthropathy. Spinal canal and foramen are patent. L3-L4: Mild disc bulging with osteophytic ridging. Mild facet arthropathy. Spinal canal and foramen a re patent. L4-L5: Shallow RIGHT pericentral protrusion. Slight impingement on the RIGHT subarticular recess and traversing RIGHT L5 nerve root. Mild facet arthropathy. Foramen are patent. L5-S1: Mild disc osteophytic ridging. Slight impingement RIGHT subarticular recess and traversing RIG HT S1 nerve root. Mild to moderate RIGHT foraminal narrowing. Mild facet arthropathy. Mild LEFT nadya inal narrowing. Visualized pelvic bony structures: Normal. Paravertebral soft tissues: Normal. MR/MR lumbar spine wo con* [id number] IMPRESSION: 1. RIGHT pericentral disc protrusion L4-L5 impinges the RIGHT subarticular rec ess and traversing RIGHT L5 nerve root. Recommend correlation for RIGHT L5 nerv e root symptoms. This is new compared to previous. 2. Mild disc osteophytic ridging L5-S1 with mild to moderate RIGHT foraminal n arrowing and contact of the exiting RIGHT L5 nerve root. This is unchanged comp ared to previous. Slight impingement on traversing RIGHT S1 nerve root at this level. 3. Mild facet arthropathy L3-L5. 4. Chronic anterior wedging at T11 is unchanged.
== END 2021-11-07 15:37 | disposition home or self-care (01) ==
LOC: RAD 15:37
PROVIDERS: PCP Nurse Practitioner Family; Visit Provider Nurse Practitioner
DX: M54.16 Radiculopathy, lumbar region (principal); M51.26 Other intervertebral disc displacement, lumbar region; M48.54XA Collapsed vertebra, not elsewhere classified, thoracic region, initial encounter for fracture; M47.816 Spondylosis without myelopathy or radiculopathy, lumbar region
CPT/HCPCS: 72148

== ENCOUNTER → 2021-11-22 10:33 | Outpatient (BNVA) | payer MEDICAID, SELFPAY | PROVIDERS: PCP Nurse Practitioner Family; Visit Provider Anesthesiology Pain Medicine | DX: M79.604 Pain in right leg (principal); M79.605 Pain in left leg; M48.062 Spinal stenosis, lumbar region with neurogenic claudication | CPT/HCPCS: 99213; 99214 ==

== ENCOUNTER → 2021-12-06 14:21 | Outpatient (BNVA) | payer MEDICAID, SELFPAY | PROVIDERS: PCP Nurse Practitioner Family; Referring Provider Anesthesiology Pain Medicine; Visit Provider Orthopaedic Surgery | DX: M48.062 Spinal stenosis, lumbar region with neurogenic claudication (principal); M47.816 Spondylosis without myelopathy or radiculopathy, lumbar region | CPT/HCPCS: 72110; 99214 ==

== ENCOUNTER 2021-12-28 06:55 | Day surgery (SDC) | payer MEDICAID, SELFPAY ==
[2021-12-26 13:46] VITALS: BMI 32.1
[2021-12-26 14:28] LABS: Anion Gap 15.3 (5-19); Blood Urea Nitrogen 7 mg/dL (8-23); Calcium 9.7 mg/dL (8.5-10.5); Carbon Dioxide 26 mmol/L (22-29); Chloride 103 mmol/L (98-107); Glomerular Filtration Rate 98.3 mL/min (90-130); Glucose 174 mg/dL (65-115); Osmolality Calculated 292 mOsm/kg (285-295); Potassium 4.3 mmol/L (3.5-5.1); Sodium 140 mmol/L (136-145)
--- NOTE | 2021-12-26 15:29 | P.ANESASSM_ITS ---
Pre-Anesthetic Assessment Height/Weight: Height 1.7 m Weight 92.986 kg Preop Diagnosis: Lumbar stenosis with neurogenic claudication Operation Date: 12/28/21 09:40 Proposed Procedures p Lumbar Spine Decompression BILATERAL L4/5 L5/S1 96667/62573/M48.062(Bilateral) - Ed Velazquez DO Familial anesthetic complications: none Was Beta Esau taken within 24 hours: Yes Was Clonidine taken within 24 hours: N/A Social Tobacco (chews) and No alcohol Exam alert, oriented x 3, clear to auscultation bilaterally and regular rate & rhythm Airway Submandibular: within normal limits Cervical ROM: within normal limits Mallampati: Class II Dentition: false (upper) Pulmonary Sleep Apnea CV/HEM Hypertension GI Gastroesophageal Reflux Disease Metabolic Hyperlipidemia and Morbid Obesity Musc/skel Lower Back Pain and Osteoarthritis/DJD Neuropsych Neuropathy Anesthetic Plan ASA status: 3 Anesthesia: General Medications/Allergies Home Medications Medication Instructions Recorded Confirmed Last Taken Type atorvastatin 40 mg tablet 40 mg PO DAILY 05/27/19 12/26/21 03/13/21 History azelastine 137 mcg (0.1 %) nasal 2 spray intranasal BID 05/27/19 12/26/21 03/13/21 History spray aerosol carvedilol 6.25 mg tablet (Coreg) 6.25 mg PO BID 05/27/19 12/26/21 03/13/21 19:00 History cetirizine 10 mg tablet 10 mg PO DAILY 05/27/19 12/26/21 03/13/21 History duloxetine 30 mg capsule,delayed 30 mg PO DAILY 05/27/19 12/26/21 03/13/21 History release (Cymbalta) gabapentin 600 mg tablet 600 mg PO TID 05/27/19 12/26/21 03/13/21 History ipratropium bromide 21 mcg (0.03 2 spray intranasal BID 05/27/19 12/26/21 03/13/21 History %) nasal spray lisinopril 20 mg tablet 20 mg PO DAILY 05/27/19 12/26/21 03/13/21 History methocarbamol 750 mg tablet 750 mg PO TID 05/27/19 12/26/21 03/13/21 History (Robaxin-750) ergocalciferol (vitamin D2) 1,250 1,250 mcg PO .twice per month 08/14/19 12/26/21 03/13/21 History mcg (50,000 unit) capsule (Vitamin D2) celecoxib 200 mg capsule (Celebrex) 200 mg PO DIRECTED back pain 03/11/21 12/26/21 03/13/21 History pantoprazole 40 mg tablet,delayed 40 mg PO DAILY #90 tabs 03/14/21 12/26/21 Unknown Rx release aripiprazole 20 mg tablet (Abilify) 20 mg PO DAILY 09/26/21 12/26/21 Unknown History topiramate 50 mg tablet 50 mg PO BID pain #60 tabs 10/25/21 12/26/21 Unknown Rx Allergies Allergy/AdvReac Type Severity Reaction Status Date / Time No Known Allergies Allergy Verified 12/26/21 13:43 [facility] Anesthesia Medical History Cervical disc disorder with myelopathy of mid-cervical region Cognitive impairment Spinal stenosis, cervical region Family History Son Asthma Family/Other Asthma Son Seizure disorder Family/Other Diabetes Family/Other Cancer malignant neoplastic disease Grandfather Heart disease Brother Cancer throat Brother Cardiac arrest Social History Smoking and tobacco status: never smoked Second hand smoke exposure: Yes Alcohol intake: current Alcohol intake frequency: few times a week Alcohol type: beer Last alcohol use date: 05/26/19 Other details last alcohol use: pt uses to help him sleep Lives independently: Yes Marital status: Single History of recent travel: No Data Anesthesia : 12/26/21 14:00 BMP 12/26/21 14:00 Sodium 140 Potassium 4.3 Chloride 103 Carbon Dioxide 26 BUN 7 L Creatinine 0.8 Glucose 174 H Calcium 9.7 Cardiac Studies: Sestamibi Stress Test (Cardiology) 10/01
[2021-12-28] VITALS (10 sets, daily range): BP systolic 108–127; BP diastolic 67–92; PULSE 69–101; RESP 15–19; TEMP 36.1–37.1; O2SAT 95–100
--- NOTE | 2021-12-28 | SCC_ITS ---
Procedure done: 1. Bilateral L4/5 laminectomy with partial facetectomies 2. Bilateral L5/S1 laminectomy with partial facetecomies 36.2 seconds of fluoroscopic guidance, for a cumulative dose of 28.68 mGy, was provided to Dr. Velazquez by the radiology department. C-arm images of the lumbar spine were saved for the patient's permanent record. [facility]
--- NOTE | 2021-12-28 | XR_ITS ---
WS: [id number] Exam: XR lumbar spine 1V [id number] Date/Time of Exam: 12/28/2021 12:00 AM Reason For Exam: lumbar decompression L4-5; L5-S1 2 anterior posterior C-arm images of the lower lumbar spine are submitted for evaluation. Both images depict a localizer port positioned over the region of the L4-5 disc level. No other signi ficant finding on this limited series.
--- NOTE | 2021-12-28 07:10 | W.PM.OPSUD ---
Surgery/Procedure H&P Update DATE OF PROCEDURE: December 28, 2021 DATE H&P PERFORMED: 12/06/20 H&P UPDATE INFORMATION: I have reviewed H&P completed within last 30 days, I have examined patient prior to procedure and No changes to prior documentation PREOP DIAGNOSIS: Lumbar stenosis with neurogenic claudication PLANNED PROCEDURE: Operation Date: 12/28/21 08:30 Proposed Procedures p Lumbar Spine Decompression BILATERAL L4/5 L5/S1 [id number]/43898/M48.062(Bilateral) - Ed Velazquez DO
--- NOTE | 2021-12-28 07:34 | P.ANESUD_ITS ---
Pre-Anesthetic Update Pre-Anesthetic Assessment: Date of Surgery/Procedure: 12/28/21 Preop Shantell gnosis: Lumbar stenosis with neurogenic claudication Proposed Procedure: Operation Date: 12/28/21 08:30 Proposed Procedures p Lumbar Spine Decompression BILATERAL L4/5 L5/S1 10547/29295/M48.062(Bilateral) - Ed Velazquez, DO Any changes to Pre-Anesthetic Assessment?: No Last Intake: Intake Last Liquid Date 12/27/21 Last Liquid Time 21:00 Last Solid Date 12/27/21 Last Solid Time 19:00 Labs Last 48hrs: BMP 12/26/21 14:00 Sodium 140 Potassium 4.3 Chloride 103 Carbon Dioxide 26 BUN 7 L Creatinine 0.8 Glucose 174 H Calcium 9.7 Vitals: Temperature 98.8 F 12/28/21 07:18 Temperature Source Temporal Artery S can 12/28/21 07:18 Pulse Rate 69 12/28/21 07:18 Respiratory Rate 18 12/28/21 07:18 Blood Pressure 127/84 12/28/21 07:18 Blood Pressure Kori n 98 12/28/21 07:18 Pulse Oximetry 98 12/28/21 07:18 Oxygen Delivery Me thod 12/28/21 07:18 Exam: Pre-Anes Outpt Exam: alert, oriented x 3, clear to auscultation bilaterally and regular rate & rhythm Cardiac Studies: Sestamibi Stress Test (Cardiology) 10/01
[2021-12-28] MEDS: sodium chloride 0.9% 1,000 ML 30 ML IV (07:48)
[2021-12-28] MEDS: ceFAZolin 2,000 MG in sodium chloride 0.9% (plus) 50 ML 100 MG IV (08:23)
--- NOTE | 2021-12-28 09:53 | SUR.PHASEI ---
0945 PT TO PACU 5 SLEEPY WITH GOOD RESP EFFORT, PT AWAKES TO VOICE, MONITOR SR WITH NO ECTOPY NOTED IV TO RT AC #20 WITH NS 150 ML AT KVO RATE ID BRACELET TO LT WRIST PT ID'D WITH 2 IDENTIFIERS.
--- NOTE | 2021-12-28 10:06 | PM.OP ---
Operative Report Date of procedure: December 28, 2021 Pre-op diagnosis: Preop Diagnosis Lumbar stenosis with neurogenic claudication Post-op diagnosis: same Procedure done: 1. Bilateral L4/5 laminectomy with partial facetectomies 2. Bilateral L5/S1 laminectomy with partial facetecomies Surgeon: Ed Velazquez Sales Enablement Manager: Poncho Hicks Estimated blood loss (mL): 5 Procedure: 1. Bilateral L4/5 laminectomy with partial facetectomies 2. Bilateral L5/S1 laminectomy with partial facetecomies Patient is brought to the operative suite. After undergoing anesthesia they are placed in the prone position. All areas of impingement are well padded. Patient is then prepped and draped in the normal sterile fashion. A skin incision is made over the L4-5 level. This is confirmed under c-arm guidance. A series of dilators are passed and the tubular retractor is docked on the L 4 lamina. A bovie is used to clear the soft tissue off the lamina and the L 4/5 facet joint. A high speed otoniel is then used to perform the laminectomy and take down the medial aspect of the L 4/5 facet joint. A kerrison rongeure was then used to take down the remaining lamina and smooth the edged of the laminectomy up to the point where the ligamentum flavum attaches. Attention was then brought to the medial aspect of the facet joint. The remaining medial aspect of the superior and inferior aspect of the facet joint were taken down with the kerrison from the pedicle of L 4 to L 5. The facet joint had significant hypertrophy. Attention was then brought to the Ligamentum Flavum. The ligament was taken down from the lamina of L 4 to L 5 and out medially to the remaining facet joint. The ligament was thick and calcified. The dura was then exposed. The dura was in good repair. The L 4 nerve was then traced with a curette out the L 4/5 foramen and found to be adequately decompressed. The L 5 nerve was traced with a curette around the L 5 pedicle. The lateral recess was opened with a kerrison helping to further decompress the L 5 nerve. The tubular retractor was then tilted to the contralateral side. The bovie was used to take down the soft tissue on the spinous process. The high speed otoniel was used to take down the spinous process and then the contralateral lamina of L 4. The kerrison rongeur was used to take down the remaining lamina to the point where the ligamentum flavum attached and the ligamentum flavum was taken down from L 4 to L 5. The kerrison rongeur was then used to reach across and take down the medial aspect of the contralateral L 4/5 facet joint.The currete was used to trace the contralateral L 4 nerve out the L 4/5 foramen to make sure it was decompressed adequatesly and the L 5 was traced around the L 5 pedicle. The lateral recess was opened further with the kerrison to ensure the L 5 is adequately decompressed. A skin incision is made over the L5/S1 level. This is confirmed under c-arm guidance. A series of dilators are passed and the tubular retractor is docked on the L 5 lamina. A bovie is used to clear the soft tissue off the lamina and the L 5/S1 facet joint. A high speed otoniel is then used to perform the laminectomy and take down the medial aspect of the L 5/S1 facet joint. A kerrison rongeure was then used to take down the remaining lamina and smooth the edged of the laminectomy up to the point where the ligamentum flavum attaches. Attention was then brought to the medial aspect of the facet joint. The remaining medial aspect of the superior and inferior aspect of the facet joint were taken down with the kerrison from the pedicle of L 5 to S1. The facet joint had significant hypertrophy. Attention was then brought to the Ligamentum Flavum. The ligament was taken down from the lamina of L 5 to S1 and out medially to the remaining facet joint. The ligament was thickened and calcified. The dura was then exposed. The dura was in good repair. The L 5 nerve was then traced with a curette out the L 5/S1 foramen and found to be adequately decompressed. The S1 nerve was traced with a curette around the S1 pedicle. The lateral recess was opened with a kerrison helping to further decompress the S1 nerve. The tubular retractor was then tilted to the contralateral side. The bovie was used to take down the soft tissue on the spinous process. The high speed otoniel was used to take down the spinous process and then the contralateral lamina of L 5. The kerrison rongeur was used to take down the remaining lamina to the point where the ligamentum flavum attached and the ligamentum flavum was taken down from L 5 to S1. The kerrison rongeur was then used to reach across and take down the medial aspect of the contralateral L 5/S1 facet joint.The currete was used to trace the contralateral L 5 nerve out the L 5/S1 foramen to make sure it was decompressed adequatesly and the S1 was traced around the S1 pedicle. The lateral recess was opened further with the kerrison to ensure the S1 is adequately decompressed. Wound is then irrigated copiously with saline and surgiflo is used to stop any bleeding. The tubular retractor is removed and the wound is closed with vicryl and monocryl suture. Glue is then used to protect the wound. A sterile dressing is then placed. Patient was then placed in the supine position and transferred to the PACU in stable condition.
--- NOTE | 2021-12-28 10:18 | SUR.PHASEI ---
1010 PT AWAKE ALERT TALKATIVE C/O OF PAIN TO BACK , PT MOVES BILAT FEET STRONGLY AND EQUEALLY DORSAL FLEX AND EXTENSION PT OK WITH TAKING PO PAIN MED IN OPS, HANDOFF AT BEDSIDE TO MARTINE GR.
[2021-12-28] MEDS: HYDROmorphone 1 mg/mL INJ 1 mL 0.5 MG IVP ×2 (10:31→10:52)
[2021-12-28] MEDS: HYDROcodone-acetaminophen 5-325 mg Tablet 1 TAB PO (11:10)
--- NOTE | 2021-12-28 15:34 | ANE.PACU2 ---
Inpatient post-anesthesia follow up: Airway intact: Yes Vital signs: Temperature 97.0 F Pulse Rate 82 Respiratory Rate 18 Blood Pressure 120/86 Pulse Oximetry 95 Oxygen Delivery Me thod Room Air Oxygen Flow Rate 8 Fraction of Inspir ed Oxygen Hydration adequate: Yes Nausea and vomiting: No Pain level: 3 Mental status: Baseline
== END 2021-12-28 11:29 | disposition home or self-care (01) ==
PROVIDERS: Anesthesiology; PCP Nurse Practitioner Family; Visit Provider Orthopaedic Surgery
PROC: (CPT 63005; principal; 2021-12-28 08:20)
DX: M48.062 Spinal stenosis, lumbar region with neurogenic claudication (principal); G47.30 Sleep apnea, unspecified; I10 Essential (primary) hypertension; K21.9 Gastro-esophageal reflux disease without esophagitis; M19.90 Unspecified osteoarthritis, unspecified site; E66.01 Morbid (severe) obesity due to excess calories; Z68.32 Body mass index [BMI] 32.0-32.9, adult
CPT/HCPCS: 63047; 63048; 36415; 72020; 76000; 80048; J1100; J1170; J2250; J2405; J2704; J3010; J7030

== ENCOUNTER → 2022-01-12 12:53 | Outpatient (BNVA) | payer MEDICAID, SELFPAY | PROVIDERS: PCP Nurse Practitioner Family; Visit Provider Orthopaedic Surgery | DX: Z47.89 Encounter for other orthopedic aftercare (principal) | CPT/HCPCS: 99024 ==